=== PATIENT | female | born 1975 | race Caucasian/White ===

== ENCOUNTER 2018-06-25 14:09 | Emergency (ER) | payer BC, SELFPAY ==
[2018-06-25 14:33] VITALS: BP 145/89; PULSE 79; RESP 18; TEMP 37.1; O2SAT 96; BMI 21.0
--- NOTE | 2018-06-25 14:43 | DI.RAD.S_ITS ---
PROCEDURE: XR ANKLE RT MIN 3V INDICATIONS: right ankle pain TECHNIQUE: 3 views of the ankle were acquired. COMPARISON: [facility], , XR FOOT RT MIN 3V, 06/25/2018, 14:22. FINDINGS: Bones: Osseous fragment measuring 6 mm seen projecting adjacent to the lateral aspect of the talus and calcaneus however the exact donor site is unclear, possibly the cuboid given the lucent appearance on the comparison foot radiograph. Ankle mortise is normally aligned. No suspicious bony lesions. Soft tissues: No tibiotalar joint effusion. Achilles tendon appears normal. IMPRESSION: Probable fracture fragment projects adjacent to the lateral aspect of the hindfoot/midfoot. Recommend further evaluation with CT. Dictated by: Huey Kearney M.D. on 06/25/2018 at 15:25 Approved by: Huey Kearney M.D. on 06/25/2018 at 15:29
--- NOTE | 2018-06-25 14:44 | DI.RAD.S_ITS ---
PROCEDURE: XR FOOT RT MIN 3V INDICATIONS: right foot pain TECHNIQUE: 3 views of the foot were acquired. COMPARISON: None. FINDINGS: Bones: No fractures or dislocations. No suspicious bony lesions. Mild plantar calcaneal spur. Soft tissues: No tibiotalar joint effusion. Achilles tendon appears normal. IMPRESSION: No fracture identified Small plantar calcaneal spur. Dictated by: Huey Kearney M.D. on 06/25/2018 at 15:20 Approved by: Huey Kearney M.D. on 06/25/2018 at 15:22
--- NOTE | 2018-06-25 16:47 | PC.NURSE ---
Charge nurse defining ED limitations for behaviors of walking into other pts rooms to find this nurse wearing only a bath blanket.
--- NOTE | 2018-06-25 17:21 | ED_ITS ---
HPI - Extremity Injury (Lower) <Archana Goins PA-C - Last Filed: 06/25/18 23:04> General Chief Complaint: Extremity Injury, Lower Stated Complaint: RIGHT ANKLE Time Seen by Provider: 06/25/18 17:21 Source: patient Mode of arrival: other (Crutches) Limitations: no limitations History of Present Illness HPI Narrative: This 42-year-old female comes in due to persistent right foot and ankle pain. She fell on June 05 describing her right foot being splayed outward laterally. She states that she was seen by her PCP office and this was x-rayed, negative for fracture. She continued to have pain and was put in a walking boot, but told not to bear weight she says. She has been on crutches. She states that whenever she tries to put her leg down at all or dangles that, she has more pain, and there is color change in her ankle and foot, which becomes red and kind of dusky around the toes. She states it feels tingly around the lateral toes. This is much better with the foot elevated and resting. She denies any other injury, pain elsewhere in the lower extremity. She denies any possibility of , has vasectomy. Related Data Home Medications Medication Instructions Recorded Confirmed multivitamin 1 tab PO DAILY 06/25/18 06/25/18 triamcinolone acetonide [Nasacort] 1 spray INTRANASAL DIRECTED PRN 06/25/18 06/25/18 Previous Rx's Medication Instructions Recorded meloxicam [Mobic] 15 mg PO DAILY #14 tab 06/25/18 ondansetron [Zofran ODT] 4 mg PO Q6-8H PRN #10 tab 06/25/18 Allergies Allergy/AdvReac Type Severity Reaction Status Date / Time Sulfa (Sulfonamide Allergy Rash Verified 06/25/18 14:40 Antibiotics) acetaminophen [From Vicodin] AdvReac Vomiting Verified 06/25/18 14:41 hydrocodone [From Vicodin] AdvReac Vomiting Verified 06/25/18 14:41 Review of Systems <Archana Goins PA-C - Last Filed: 06/25/18 23:04> Review of Systems All systems reviewed & are unremarkable except as noted in HPI and below Exam <Archana Goins PA-C - Last Filed: 06/25/18 23:04> Narrative Exam Narrative: GENERAL APPEARANCE: Patient sitting comfortably, in no distress. LUNGS: Clear to auscultation bilaterally. HEART: Rate and rhythm regular without murmur, normal S1 and S2, no S3 or S4. EXTREMITIES: No cyanosis or edema with patient lying supine. With the legs dangling, right foot and ankle area become ruborous and dusky. DP pulses are easily palpable in either position. PT pulses are faint bilaterally but present supine. Difficult to palpate or here on Doppler with the feet dangling but are present. Toes are warm and pink with brisk cap refill NEUROLOGIC: Lower extremity sensation grossly intact bilaterally. MUSCULOSKELETAL: Perhaps trace effusion over the lateral foot and ankle. Generalized tenderness around the inferior ankle joint most notable laterally into the proximal foot. Also some tenderness over the distal mid metatarsals. No point tenderness elsewhere. She is able to dorsiflex and plantar flex the toes against resistance. Achilles is intact by palpation. DERMATOLOGIC: Lower extremities there are no skin lesions, no tenting Initial Vital Signs Initial Vital Signs: Vital Signs Temperature 98.7 F 06/25/18 14:33 Pulse Rate 79 06/25/18 14:33 Respiratory Rate 18 06/25/18 14:33 Blood Pressure 145/89 H 06/25/18 14:33 Pulse Oximetry 96 06/25/18 14:33 <Ji Taylor MD - Last Filed: 07/22/18 18:24> Initial Vital Signs Initial Vital Signs: Vital Signs Temperature 98.7 F 06/25/18 14:33 Pulse Rate 79 06/25/18 14:33 Respiratory Rate 18 06/25/18 14:33 Blood Pressure 145/89 H 06/25/18 14:33 Pulse Oximetry 96 06/25/18 14:33 Course <Archana Goins PA-C - Last Filed: 06/25/18 23:04> Additional Information: I spoke with Dr. Vizcaino, collision mechanic for orthopedics to review findings of multiple fractures and probable hematoma. She does appear to have acute vascular compromise on exam today. She is feeling more comfortable with pain medications. She has crutches already at home and has been nonweightbearing. Dr. Vizcaino advised that she can continue this and follow up at her office next week. Patient is agreeable with this plan and agrees to return if any acutely worsening or new symptoms in the interim. Orders Ordered: Discontinued Medications Haloperidol (Haldol) 5 mg IM NOW ONE Stop: 06/25/18 19:45 Sodium Chloride (Normal Saline 0.9%) 1,000 mls @ 1,000 mls/hr IV BOLUS ONE Stop: 06/25/18 19:15 Last Infusion: 06/25/18 21:11 Dose: 0 mls/hr Admin: 06/25/18 18:37 Dose: 1,000 mls/hr Meloxicam (Mobic) 15 mg PO 0800 ONE Stop: 06/26/18 17:47 Meloxicam (Mobic) 15 mg PO NOW ONE Stop: 06/25/18 18:21 Last Admin: 06/25/18 18:37 Dose: 15 mg Ondansetron HCl (Zofran Odt) 4 mg PO NOW ONE Stop: 06/25/18 18:04 Last Admin: 06/25/18 18:14 Dose: 4 mg Tramadol HCl (Ultram) 50 mg PO NOW ONE Stop: 06/25/18 18:04 Last Admin: 06/25/18 18:14 Dose: 50 mg Vital Signs - 8 hr 06/25/18 21:21 06/25/18 22:14 Temperature 98.1 F Pulse Rate 66 70 Respiratory Rate 14 16 Blood Pressure 152/101 H Blood Pressure [Left Arm] 150/97 H Pulse Oximetry 95 98 <Ji Taylor MD - Last Filed: 07/22/18 18:24> Orders Ordered: Discontinued Medications Haloperidol (Haldol) 5 mg IM NOW ONE Stop: 06/25/18 19:45 Sodium Chloride (Normal Saline 0.9%) 1,000 mls @ 1,000 mls/hr IV BOLUS ONE Stop: 06/25/18 19:15 Last Infusion: 06/25/18 21:11 Dose: 0 mls/hr Admin: 06/25/18 18:37 Dose: 1,000 mls/hr Meloxicam (Mobic) 15 mg PO 0800 ONE Stop: 06/26/18 17:47 Meloxicam (Mobic) 15 mg PO NOW ONE Stop: 06/25/18 18:21 Last Admin: 06/25/18 18:37 Dose: 15 mg Ondansetron HCl (Zofran Odt) 4 mg PO NOW ONE Stop: 06/25/18 18:04 Last Admin: 06/25/18 18:14 Dose: 4 mg Tramadol HCl (Ultram) 50 mg PO NOW ONE Stop: 06/25/18 18:04 Last Admin: 06/25/18 18:14 Dose: 50 mg Vital Signs - 8 hr 06/25/18 21:21 06/25/18 22:14 Temperature 98.1 F Pulse Rate 66 70 Respiratory Rate 14 16 Blood Pressure 152/101 H Blood Pressure [Left Arm] 150/97 H Pulse Oximetry 95 98 MDM - Extremity Injury (Lower) <Archana Goins PA-C - Last Filed: 06/25/18 23:04> Lab Data Result diagrams: 06/25/18 18:55 06/25/18 18:55 Lab Results 06/25/18 06/25/18 Range/Units 18:55 18:55 WBC 6.4 (4.5-11.0) X10^3/uL RBC 4.69 (4.0-5.2) X10^6/uL Hgb 13.9 (12.0-16.0) g/dL Hct 39.1 (36-46) % MCV 83.2 (80-100) fL MCH 29.6 (26-34) PG MCHC 35.5 (30-36) % RDW 13.2 (11.6-14.8) % Plt Count 238 (150-400) X10^3/uL Neut % (Auto) 56.9 (50-75) % Lymph % (Auto) 32.3 (25-40) % [place] % (Auto) 7.2 (3-14) % Eos % (Auto) 2.8 (2-4) % Baso % (Auto) 0.8 (0-2) % Neut # (Auto) 3700 (2924-9444) /uL Sodium 135 L (137-145) mmol/L Potassium 4.7 (3.4-5.1) mmol/L Chloride 102 (98-107) mmol/L Carbon Dioxide 26 (22-32) mmol/L BUN 16 (7-17) mg/dL Creatinine 0.60 (0.52-1.04) mg/dL Estimated GFR > 60.0 (>60) mL/min BUN/Creatinine Ratio 26.7 H (6-22) Glucose 81 (70-100) mg/dL Calcium 8.5 (8.4-10.2) mg/dL Imaging Data extremity: Radiologist's impression: View Report History Print [address] [address] [address] Scan Report Signed Patient: KAREN FELIX I MR#: [id number] : 1975 Acct:[id number] Age/Sex: 42 / F Date of Service: 06/25/18 Loc: ED Accession Number: [id number] Procedure: CT angio abd aorta runoff Ordering Provider: Archana Goins P.A-C PROCEDURE: CT ANGIO RUNOFF OF THE RIGHT LOWER EXTREMITY INDICATIONS: Fracture, possible vascular injury. TECHNIQUE: After the administration of intravenous contrast, 2.5 mm sections acquired of the bilateral lower extremities from the distal femurs through the feet. 3- dimensional maximum intensity projection (MIP) coronal and sagittal reformats, and/or 3- dimensional volume rendering reformatting was then performed. For radiation dose reduction , the following was used: automated exposure control. COMPARISON:.[facility], CR, XR ANKLE RT MIN 3V, 06/25/2018, 14:22. [facility], CR, XR FOOT RT MIN 3V, 06/25/2018, 14:22. FINDINGS: There are comminuted fractures of the anterolateral right calcaneus, lateral right navicular bone, and posterior right cuboid bone with lateral right foot soft tissue edema. There is a 4.4 cm hematoma lateral to the right foot fractures without acute contrast extravasation. There is no evidence of lower extremity vascular injury to the level of the ankle. The vascular structures of the right foot are not well opacified by contrast on this exam, but a blood vessel it is partially opacified by contrast overlies the hematoma laterally. IMPRESSION: #1. Comminuted fractures of the anterolateral right calcaneus, lateral right navicular bone, and posterior right cuboid bone with overlying lateral right foot soft tissue edema. There is a 4.4 cm lateral right foot hematoma, without active contrast extravasation. #2. Structures of the foot are not well opacified by contrast due to the diminutive size of the vessels. However, there is a partially opacified blood vessel that overlies the above described hematoma laterally that may be affected by mass effect from the hematoma. Dictated by: Jamie Fernández M.D. on 06/25/2018 at 20:51 Approved by: Jamie Fernández M.D. on 06/25/2018 at 21:07 View Report History Print [address] [address] XRay Report Signed Patient: KAREN FELIX I MR#: [id number] : 1975 Acct:[id number] Age/Sex: 42 / F Date of Service: 06/25/18 Loc: ED Accession Number: [id number] Procedure: XR foot RT min 3V Ordering Provider: Archana Goins P.A-C PROCEDURE: XR FOOT RT MIN 3V INDICATIONS: right foot pain TECHNIQUE: 3 views of the foot were acquired. COMPARISON: None. FINDINGS: Bones: No fractures or dislocations. No suspicious bony lesions. Mild plantar calcaneal spur. Soft tissues: No tibiotalar joint effusion. Achilles tendon appears normal. IMPRESSION: No fracture identified Small plantar calcaneal spur. Dictated by: Huey Kearney M.D. on 06/25/2018 at 15:20 Approved by: Huey Kearney M.D. on 06/25/2018 at 15:[address] [address] XRay Report Signed Patient: KAREN FELIX I MR#: [id number] : 1975 Acct:[id number] Age/Sex: 42 / F Date of Service: 06/25/18 Loc: ED Accession Number: [id number] Procedure: XR ankle RT min 3V Ordering Provider: Archana Goins P.A-C PROCEDURE: XR ANKLE RT MIN 3V INDICATIONS: right ankle pain TECHNIQUE: 3 views of the ankle were acquired. COMPARISON: [facility], , XR FOOT RT MIN 3V, 06/25/2018, 14:22. FINDINGS: Bones: Osseous fragment measuring 6 mm seen projecting adjacent to the lateral aspect of the talus and calcaneus however the exact donor site is unclear, possibly the cuboid given the lucent appearance on the comparison foot radiograph. Ankle mortise is normally aligned. No suspicious bony lesions. Soft tissues: No tibiotalar joint effusion. Achilles tendon appears normal. IMPRESSION: Probable fracture fragment projects adjacent to the lateral aspect of the hindfoot/midfoot. Recommend further evaluation with CT. Dictated by: Huey Kearney M.D. on 06/25/2018 at 15:25 Approved by: Huey Kearney M.D. on 06/25/2018 at 15:[address] [address] XRay Report Signed Patient: KAREN FELIX I MR#: [id number] : 1975 Acct:[id number] Age/Sex: 42 / F Date of Service: 06/25/18 Loc: ED Accession Number: [id number] Procedure: XR ankle RT min 3V Ordering Provider: Archana Goins P.A-C PROCEDURE: XR ANKLE RT MIN 3V INDICATIONS: right ankle pain TECHNIQUE: 3 views of the ankle were acquired. COMPARISON: [facility], , XR FOOT RT MIN 3V, 06/25/2018, 14:22. FINDINGS: Bones: Osseous fragment measuring 6 mm seen projecting adjacent to the lateral aspect of the talus and calcaneus however the exact donor site is unclear, possibly the cuboid given the lucent appearance on the comparison foot radiograph. Ankle mortise is normally aligned. No suspicious bony lesions. Soft tissues: No tibiotalar joint effusion. Achilles tendon appears normal. IMPRESSION: Probable fracture fragment projects adjacent to the lateral aspect of the hindfoot/midfoot. Recommend further evaluation with CT. Dictated by: Huey Kearney M.D. on 06/25/2018 at 15:25 Approved by: Huey Kearney M.D. on 06/25/2018 at 15:29 <Ji Taylor MD - Last Filed: 07/22/18 18:24> Lab Data Lab Results 06/25/18 06/25/18 Range/Units 18:55 18:55 WBC 6.4 (4.5-11.0) X10^3/uL RBC 4.69 (4.0-5.2) X10^6/uL Hgb 13.9 (12.0-16.0) g/dL Hct 39.1 (36-46) % MCV 83.2 (80-100) fL MCH 29.6 (26-34) PG MCHC 35.5 (30-36) % RDW 13.2 (11.6-14.8) % Plt Count 238 (150-400) X10^3/uL Neut % (Auto) 56.9 (50-75) % Lymph % (Auto) 32.3 (25-40) % [place] % (Auto) 7.2 (3-14) % Eos % (Auto) 2.8 (2-4) % Baso % (Auto) 0.8 (0-2) % Neut # (Auto) 3700 (5631-3068) /uL Sodium 135 L (137-145) mmol/L Potassium 4.7 (3.4-5.1) mmol/L Chloride 102 (98-107) mmol/L Carbon Dioxide 26 (22-32) mmol/L BUN 16 (7-17) mg/dL Creatinine 0.60 (0.52-1.04) mg/dL Estimated GFR > 60.0 (>60) mL/min BUN/Creatinine Ratio 26.7 H (6-22) Glucose 81 (70-100) mg/dL Calcium 8.5 (8.4-10.2) mg/dL Discharge Plan Departure Patient Disposition: Home Clinical Impression: Foot fracture, right Discharge Date/Time: 06/25/18 22:14 Interventions: ED Discharge Assessment Last Done: 06/25/18 22:14 Instructions: DI for Foot Fracture Activity Restrictions/Additional Instructions: You should return as we talked about if you have any acutely worsening symptoms such as more pain, skin changes, numbness, fever or swelling. Otherwise, you should be completely nonweightbearing (use your crutches). I have sent in a prescription for the anti-inflammatory meloxicam that we gave you here today. Please try taking this once daily with food since you seemed to do okay with it in terms of stomach upset. You can add the tramadol that you have at home as needed for pain. I have prescribed the antinausea medicine that you had here today for you to take with this as needed. Do not drive while taking the pain medication until you determine whether it causes you any drowsiness. Thursday morning, please call [facility]. Let them know you have multiple fractures in your heel area and Dr. Rothman who was collision mechanic for the emergency room wanted you to be seen so that they can schedule an appointment for you. Prescriptions: New ondansetron [Zofran ODT] 4 mg tablet,disintegrating 4 mg PO Q6-8H PRN (Reason: nausea and vomiting) Qty: 10 RF: 0 meloxicam [Mobic] 15 mg tablet 15 mg PO DAILY Qty: 14 RF: 0 No Action multivitamin Tablet 1 tab PO DAILY RF: 0 triamcinolone acetonide [Nasacort] 55 mcg Aerosol,[place] 1 spray Intranasal DIRECTED PRN (Reason: seasonal allergies) RF: 0 Referrals: Sena Vizcaino MD [Physician] - Reagan Collins MD [Non-Staff] - <Ji Taylor MD - Last Filed: 07/22/18 18:24> Cosign ED Attending Cosignature Attestation: I was present in the ER at the time of this patient's care. I was available for verbal consultation, or to see the patient directly if needed. I agree with the assessment, and care plan.
[2018-06-25] MEDS: ONDANSETRON 4 MG ODT PO (18:14)
[2018-06-25] MEDS: TRAMADOL 50 MG TABLET PO (18:14)
--- NOTE | 2018-06-25 18:16 | DI.CT.S_ITS ---
PROCEDURE: CT ANGIO RUNOFF OF THE RIGHT LOWER EXTREMITY INDICATIONS: Fracture, possible vascular injury. TECHNIQUE: After the administration of intravenous contrast, 2.5 mm sections acquired of the bilateral lower extremities from the distal femurs through the feet. 3-dimensional maximum intensity projection (MIP) coronal and sagittal reformats, and/or 3-dimensional volume rendering reformatting was then performed. For radiation dose reduction, the following was used: automated exposure control. COMPARISON:.[facility], CR, XR ANKLE RT MIN 3V, 06/25/2018, 14:22. [facility], CR, XR FOOT RT MIN 3V, 06/25/2018, 14:22. FINDINGS: There are comminuted fractures of the anterolateral right calcaneus, lateral right navicular bone, and posterior right cuboid bone with lateral right foot soft tissue edema. There is a 4.4 cm hematoma lateral to the right foot fractures without acute contrast extravasation. There is no evidence of lower extremity vascular injury to the level of the ankle. The vascular structures of the right foot are not well opacified by contrast on this exam, but a blood vessel it is partially opacified by contrast overlies the hematoma laterally. IMPRESSION: #1. Comminuted fractures of the anterolateral right calcaneus, lateral right navicular bone, and posterior right cuboid bone with overlying lateral right foot soft tissue edema. There is a 4.4 cm lateral right foot hematoma, without active contrast extravasation. #2. Structures of the foot are not well opacified by contrast due to the diminutive size of the vessels. However, there is a partially opacified blood vessel that overlies the above described hematoma laterally that may be affected by mass effect from the hematoma. Dictated by: Jamie Fernández M.D. on 06/25/2018 at 20:51 Approved by: Jamie Fernández M.D. on 06/25/2018 at 21:07
[2018-06-25] MEDS: SODIUM CHLORIDE 0.9% 1,000 ML 1000 ML IV (18:37)
[2018-06-25] MEDS: MELOXICAM 7.5 MG TABLET 15 MG PO (18:37)
--- NOTE | 2018-06-25 18:58 | PC.NURSE ---
Elevated leg per provider request. Stable after CTA
[2018-06-25 19:01] LABS: Add Manual Diff / Slide Review NO; Basophils Percent Auto 0.8 % (0-2); Eosinophils Percent Auto 2.8 % (2-4); Hematocrit 39.1 % (36-46); Hemoglobin 13.9 g/dL (12.0-16.0); Lymphocytes Percent Auto 32.3 % (25-40); Mean Corpuscular HGB Conc 35.5 % (30-36); Mean Corpuscular Hemoglobin 29.6 PG (26-34); Mean Corpuscular Volume 83.2 fL (80-100); Monocytes Percent Auto 7.2 % (3-14); Neutrophils Absolute Auto 3700 /uL (3000-5900); Neutrophils Percent Auto 56.9 % (50-75); Platelet Count 238 X10^3/uL (150-400); Red Blood Cell Count 4.69 X10^6/uL (4.0-5.2); Red Cell Distribution Width 13.2 % (11.6-14.8); White Blood Cell Count 6.4 X10^3/uL (4.5-11.0)
[2018-06-25 19:12] LABS: BUN Creatinine Ratio 26.7 (6-22); Blood Urea Nitrogen 16 mg/dL (7-17); Calcium 8.5 mg/dL (8.4-10.2); Carbon Dioxide 26 mmol/L (22-32); Chloride 102 mmol/L (98-107); Estimated Glomerular Filt Rate > 60.0 mL/min (>60); Glucose 81 mg/dL (70-100); Potassium 4.7 mmol/L (3.4-5.1); Sodium 135 mmol/L (137-145)
[2018-06-25 19:13] LABS: HEMOLYSIS 138 (0-50)
[2018-06-25 21:21] VITALS: BP 150/97; PULSE 66; RESP 14; O2SAT 95
[2018-06-25 22:14] VITALS: BP 152/101; PULSE 70; RESP 16; TEMP 36.7; O2SAT 98
== END 2018-06-25 22:14 | disposition home or self-care (01) ==
PROVIDERS: Emergency Provider Internal Medicine
DX: S92.901A Unspecified fracture of right foot, initial encounter for closed fracture (principal); W19.XXXA Unspecified fall, initial encounter
CPT/HCPCS: 73610; 73630; 73706; 75635; 80048; 85025; 96360; 96361; 99283; 99284

== ENCOUNTER 2021-09-24 19:25 | Emergency (ER) | payer BC, SELFPAY ==
[2021-09-24 19:39] VITALS: BP 157/92; PULSE 88; RESP 20; TEMP 36.9; O2SAT 98
--- NOTE | 2021-09-24 21:07 | ED.EAR ---
HPI - Ear Problem General Chief complaint: Ear Stated complaint: rt ear pain Time Seen by Provider: 09/24/21 21:06 Source: patient Mode of arrival: Ambulatory History of Present Illness HPI Narrative: 46-year-old female nonsmoker with noncontributory medical history other and a chief complaint of right ear pain over the past 24 hours or so. She denies any injury nor fever or chills. She states that she has had no drainage or leakage from the ear. She denies other symptoms such as runny nose, sneezing, cough, chest pain or shortness of breath. She has had no nausea, vomiting or diarrhea. She denies any trauma or injury. She denies any recent flights or scuba diving. She denies any change in hearing. She denies any dizziness, weakness or lightheadedness Related Data Home Medications Medication Instructions Recorded Confirmed multivitamin 1 tab PO DAILY 06/25/18 06/25/18 triamcinolone acetonide 55 mcg 1 spray INTRANASAL DIRECTED PRN 06/25/18 06/25/18 nasal spray aerosol (Nasacort) Previous Rx's Medication Instructions Recorded meloxicam 15 mg tablet (Mobic) 15 mg PO DAILY #14 tab 06/25/18 ondansetron 4 mg disintegrating 4 mg PO Q6-8H PRN #10 tab 06/25/18 tablet (Zofran ODT) Allergies Allergy/AdvReac Type Severity Reaction Status Date / Time Sulfa (Sulfonamide Allergy Rash Verified 06/25/18 14:40 Antibiotics) acetaminophen [From Vicodin] AdvReac Vomiting Verified 06/25/18 14:41 hydrocodone [From Vicodin] AdvReac Vomiting Verified 06/25/18 14:41 Review of Systems Review of Systems Narrative: GENERAL: Denies chills, fatigue, malaise, fever, sweats. HEENT: See HPI RESPIRATORY: Denies dyspnea, cough, wheezing, hemoptysis, sputum. CARDIOVASCULAR: Denies chest pain, palpitations, orthopnea, edema, GASTROINTESTINAL: Denies nausea, vomiting, abdominal pain, diarrhea, constipation, melena. : Denies dysuria, frequency, incontinence, hematuria, urinary retention. MUSCULOSKELETAL: denies weakness, joint pain, or bony pain SKIN: Denies rash, skin lesions, or other NEUROLOGIC: Denies weakness, headache, numbness, change in speech, confusion, seizures, incoordination. PSYCHIATRIC: No concerning psychosocial issues. 12 point review of systems is negative except for those stated above Patient History Medical History Atypical migraine Seasonal allergies Surgical History History of Hx of appendectomy Social History Smoking Status: Never smoker Smoking Status: Never smoker alcohol intake frequency: 0-2 drinks per day Substance Use Type: does not use Exam Narrative Exam Narrative: GEN: AOx3 and in mild distress EYES: Pupils are equal, round, and reactive to light and accommodation. Extraoccular muscles are intact bilaterally. There is no subconjunctival hemorrhage or exudate. ENT: Right external auditory canal swollen and erythematous without drainage. Tympanic membrane is clear, flat with central scarring, no erythema, bulging. No tympanic perforation. No surrounding erythema, no pain on palpation mastoid process CHEST: Lungs are clear to auscultation bilaterally and free of wheezes, rales, or rhonchi. Heart rate is regular rhythm, there are no murmurs, clicks, rubs, or gallops. There is no chest wall tenderness. ABD: Abdomen is soft and nontender. There is no guarding or rebound. Bowel sounds are normal in all 4 quadrants. There is no mass or organomegaly. EXT: Full painless ROM of all extremities with no loss of sensation or strength. SKIN: Warm, pink, and dry. No erythema or rash Initial Vital Signs Initial Vital Signs: Vital Signs Temperature 98.4 F 09/24/21 19:39 Pulse Rate 88 09/24/21 19:39 Respiratory Rate 20 09/24/21 19:39 Blood Pressure 157/92 H 09/24/21 19:39 Pulse Oximetry 98 09/24/21 19:39 Course Orders Ordered: Discontinued Medications Ofloxacin (Ofloxacin 0.3% Ophth 5 Ml) 5 drops EAR-RIGHT NOW ONE Stop: 09/24/21 21:22 Last Admin: 09/24/21 21:24 Dose: 5 drop Documented by: LAUREANO Vital Signs Vital signs: Vital Signs - 8 hr 09/24/21 19:39 Temperature 98.4 F Pulse Rate 88 Respiratory Rate 20 Blood Pressure 157/92 H Pulse Oximetry 98 Discharge Plan Departure Patient Disposition: Home Clinical Impression: Otitis externa Instructions: How to Instill Ear Drops Activity Restrictions/Additional Instructions: *You have been diagnosed with [right-sided otitis externa] *What to do: *Please continue to take your regular medications as directed. [ ] New medication prescriptions sent to your pharmacy: [ ] [ ] New medication written as a paper prescription [ ] No new medications given *Please follow up with your primary care provider in 2-3 days, call for an appointment. Let them know you were seen in the Emergency Department and that we ask that you be seen in follow up. We will electronically transmit a record of today's note if your PCP is in our system *If you do not have a primary care provider please contact the [facility] Resource line at [phone]. They will ask some questions about your medical history and help get you set up with a doctor in the community. *Return to Emergency Department if you should have any new, worsening or concerning symptoms, such as [fever greater than 101 F, shaking chills, worsening pain, persistent vomiting or other bothersome symptoms] Prescriptions: No Action multivitamin Tablet 1 tab PO DAILY RF: 0 triamcinolone acetonide [Nasacort] 55 mcg Aerosol,[place] 1 spray Intranasal DIRECTED PRN (Reason: seasonal allergies) RF: 0 ondansetron [Zofran ODT] 4 mg tablet,disintegrating 4 mg PO Q6-8H PRN (Reason: nausea and vomiting) Qty: 10 RF: 0 meloxicam [Mobic] 15 mg tablet 15 mg PO DAILY Qty: 14 RF: 0
[2021-09-24] MEDS: OFLOXACIN 0.3% OPHTH 5 ML 5 DROPS EAR-RIGHT (21:24)
== END 2021-09-24 21:30 | disposition home or self-care (01) ==
PROVIDERS: Emergency Provider Emergency Medicine
DX: H60.91 Unspecified otitis externa, right ear (principal)
CPT/HCPCS: 99282

== ENCOUNTER → 2022-06-06 09:20 | Outpatient (CLI) | payer BC, SELFPAY ==
[2022-06-06 10:26] LABS: Add Manual Diff / Slide Review NO; Basophils Absolute Auto 0 /uL (0-100); Basophils Percent Auto 0.9 % (0-2); Eosinophils Absolute Auto 100 /uL (0-450); Eosinophils Percent Auto 3.6 % (2-4); Hematocrit 42.4 % (36-46); Hemoglobin 14.7 g/dL (12.0-16.0); Lymphocytes Absolute Auto 1600 /uL (1100-4500); Lymphocytes Percent Auto 39.8 % (25-40); Mean Corpuscular HGB Conc 34.8 % (30-36); Mean Corpuscular Hemoglobin 29.1 PG (26-34); Mean Corpuscular Volume 83.7 fL (80-100); Monocytes Absolute Auto 300 /uL (0-900); Monocytes Percent Auto 7.9 % (3-14); Neutrophils Absolute Auto 2000 /uL (1500-7000); Neutrophils Percent Auto 47.8 % (50-75); Platelet Count 234 X10^3/uL (150-400); Red Blood Cell Count 5.06 X10^6/uL (4.0-5.2); Red Cell Distribution Width 12.8 % (11.6-14.8); White Blood Cell Count 4.1 X10^3/uL (4.5-11.0)
[2022-06-06 10:27] LABS: Alanine Aminotransferase 14 IU/L (<35); Albumin 4.2 g/dL (3.5-5.0); Albumin Globulin Ratio 1.6 (1.0-2.8); Alkaline Phosphatase 38 U/L (38-126); Aspartate Aminotransferase 25 IU/L (14-36); BUN Creatinine Ratio 19.7 (6-22); Bilirubin Total 0.7 mg/dL (0.2-1.3); Blood Urea Nitrogen 15 mg/dL (7-17); Calcium 8.6 mg/dL (8.4-10.2); Carbon Dioxide 29 mmol/L (22-32); Chloride 104 mmol/L (98-107); Cholesterol 216 mg/dL (140-199); Estimated Glomerular Filt Rate > 60 mL/min (>60); Globulin 2.6 g/dL (1.7-4.1); Glucose 89 mg/dL (70-100); HDL Cholesterol 70 mg/dL (40-60); HEMOLYSIS < 15 (0-50); LDL Cholesterol Calculated 132 mg/dL (<100); Potassium 3.5 mmol/L (3.4-5.1); Sodium 139 mmol/L (137-145); Total Protein 6.8 g/dL (6.3-8.2); Triglycerides 72 mg/dL (35-150)
[2022-06-06 10:54] LABS: TSH w/ Reflex to FT4 2.51 uIU/mL (0.47-4.68)
== END ==
PROVIDERS: PCP Family Medicine; Referring Provider Family Medicine; Visit Provider Family Medicine
DX: G43.009 Migraine without aura, not intractable, without status migrainosus (principal); I83.811 Varicose veins of right lower extremity with pain; J30.2 Other seasonal allergic rhinitis
CPT/HCPCS: 36415; 80053; 80061; 84443; 85025

== ENCOUNTER → 2023-09-03 10:51 | Outpatient (CLI) | payer BC, SELFPAY ==
[2023-09-03 12:04] LABS: Add Manual Diff / Slide Review NO; Basophils Absolute Auto 0 /uL (0-100); Basophils Percent Auto 0.8 % (0-2); Eosinophils Absolute Auto 0 /uL (0-450); Eosinophils Percent Auto 0.6 % (2-4); Hematocrit 40.7 % (36-46); Hemoglobin 14.2 g/dL (12.0-16.0); Lymphocytes Absolute Auto 1400 /uL (1100-4500); Mean Corpuscular HGB Conc 34.9 % (30-36); Mean Corpuscular Hemoglobin 29.9 PG (26-34); Mean Corpuscular Volume 85.7 fL (80-100); Monocytes Absolute Auto 300 /uL (0-900); Monocytes Percent Auto 6.6 % (3-14); Neutrophils Absolute Auto 2700 /uL (1500-7000); Platelet Count 213 X10^3/uL (150-400); Red Blood Cell Count 4.75 X10^6/uL (4.0-5.2); Red Cell Distribution Width 12.8 % (11.6-14.8); White Blood Cell Count 4.4 X10^3/uL (4.5-11.0)
== END ==
PROVIDERS: PCP Family Medicine; Referring Provider Physician Assistant; Visit Provider Physician Assistant
DX: R53.83 Other fatigue (principal)
CPT/HCPCS: 36415; 85025

== ENCOUNTER → 2023-09-07 16:49 | Outpatient (CLI) | payer BC, SELFPAY ==
--- NOTE | 2023-09-07 | DI.MG.S_ITS ---
BILATERAL DIGITAL SCREENING MAMMOGRAM 3D/2D WITH CAD: 09/07/2023 CLINICAL: Baseline exam. Routine screening. Family history of breast cancer. No prior exams were available for comparison. Both breasts are extremely dense, which lowers the sensitivity of mammography (category d />75% glandular tissue). Current study was also evaluated with a Computer Aided Detection (CAD) system. No significant masses, calcifications, or other findings are seen in either breast. IMPRESSION: NEGATIVE There is no mammographic evidence of malignancy. A 1 year screening mammogram is recommended. Based on the Tyrer Cuzick model (a risk assessment model) the patient's lifetime risk is 14.8% and her 10 year risk is 3.0%. According to the ACR, ACS, and NCCN guidelines, an annual breast MRI exam along with mammogram is recommended if the patient's lifetime risk is 20% or greater. This exam was interpreted at Station ID: [id number]. NOTE: For mammograms, a report in lay terms will be sent to the patient. Approximately 15% of breast malignancies will not be visualized mammographically. In the management of a palpable breast mass, a negative mammogram must not discourage biopsy of a clinically suspicious lesion. Electronically Signed By: Britton mares/aziza:09/08/2023 11:59:56 letter sent: Normal Exam ACR BI-RADS Category 1: Negative 3341F
== END ==
PROVIDERS: PCP Family Medicine; Referring Provider Specialist; Visit Provider Specialist
DX: Z12.31 Encounter for screening mammogram for malignant neoplasm of breast (principal); Z80.3 Family history of malignant neoplasm of breast
CPT/HCPCS: 77063; 77067

== ENCOUNTER 2024-02-17 17:32 | Emergency (ER) | payer BC, SELFPAY ==
[2024-02-17] VITALS (9 sets, daily range): BP systolic 140–183; BP diastolic 83–103; PULSE 57–76; RESP 16–18; TEMP 36.7; O2SAT 95–100; BMI 21.0
--- NOTE | 2024-02-17 17:59 | DI.CT.S_ITS ---
PROCEDURE: CT HEAD/BRAIN WO CON INDICATIONS: hit in forehead with metal pole 3 days ago, dizzy, LH'd TECHNIQUE: Noncontrast 4.5 mm thick angled axial sections acquired from the foramen magnum to the vertex, with coronal and sagittal reformats. For radiation dose reduction, the following was used: automated exposure control, adjustment of mA and/or kV according to patient size. COMPARISON: None. FINDINGS: Image quality: Diagnostic. CSF spaces: Basal cisterns are patent. No extra-axial fluid collections. Ventricles are normal in size and shape. Brain: No midline shift. No intracranial masses or hemorrhage. Pastor-white matter interface is normal. Skull and face: Calvarium and visualized facial bones are intact, without suspicious lesions. Sinuses: Visualized sinuses and mastoids are clear. IMPRESSION: No acute intracranial pathology. No acute skull fracture. Dictated by: Geovani Ospina M.D. on 02/17/2024 at 18:19 Approved by: Geovani Ospina M.D. on 02/17/2024 at 18:19
--- NOTE | 2024-02-17 21:16 | ED.HEATRA ---
HPI - Head Injury General Chief complaint: Head Injury Stated complaint: concussion on fri, still having issues Time Seen by Provider: 02/17/24 20:44 History of Present Illness HPI Narrative: 48-year-old female with no significant past medical history presents for headache, photophobia, lightheadedness for 5 days. Over the weekend the patient was getting baby goats from their pen to bottle feed, she states that while she was bent over an adult goat struck the gate and it hit her in the head. She had swelling in her forehead but did not lose consciousness in his not on blood thinners. She was evaluated by a friend who is a nurse, but did not seek ER evaluation at that time. Patient states that since the injury she was had persistent symptoms and is concerned that her head injury may be worse than feared. She works as a school bus aide, and while it was currently spring break she does have to use screens to do school lesson preparation. Related Data Home Medications Medication Instructions Recorded Confirmed multivitamin 1 tab PO DAILY 06/25/18 10/26/23 triamcinolone acetonide 55 mcg 1 spray intranasal DIRECTED PRN 06/25/18 10/26/23 nasal spray aerosol (Nasacort) seasonal allergies vitamin D PO 09/03/23 10/26/23 Previous Rx's Medication Instructions Recorded venlafaxine 75 mg capsule,extended 75 mg PO BEDTIME #60 caps 10/26/23 release 24 hr (Effexor XR) Allergies Allergy/AdvReac Type Severity Reaction Status Date / Time Latex, Natural Rubber Allergy Verified 10/26/23 16:42 Sulfa (Sulfonamide Allergy Rash Verified 10/26/23 16:42 Antibiotics) acetaminophen [From Vicodin] AdvReac Vomiting Verified 10/26/23 16:42 hydrocodone [From Vicodin] AdvReac Vomiting Verified 10/26/23 16:42 Review of Systems Review of Systems Narrative: Negative except as noted above Patient History Medical History Fractures (~2017) Tinnitus (~1999) Ovarian cyst (~1994) Seasonal allergies Atypical migraine (~1994) Surgical History Anesthesia History of Hx of appendectomy (~1992) Family History Father History of heart disease Hypertension Hyperlipidemia Social History Smoking Status: Never smoker Smoking Status: Never smoker alcohol intake frequency: 0-2 drinks per day Substance Use Type: does not use Exam Initial Vital Signs Initial Vital Signs: Vital Signs Temperature 98.1 F 02/17/24 17:51 Pulse Rate 64 02/17/24 17:51 Respiratory Rate 16 02/17/24 17:51 Blood Pressure 183/99 H 02/17/24 17:51 Pulse Oximetry 100 02/17/24 17:51 Oxygen Delivery Method Room Air 02/17/24 17:51 Const: Awake, alert, nontoxic appearing Eyes: PERRLA, EOMI Ears: No hemotympanum, no salas sign Skin: Warm, Dry, intact, no rashes Neuro: AO x3, CN II-XII grossly intact, moves all extremities Course Orders Ordered: Discontinued Medications Diphenhydramine HCl (Diphenhydramine 50 Mg/Ml Vial) 50 mg IV NOW ONE Stop: 02/17/24 21:16 Last Admin: 02/17/24 21:26 Dose: 50 mg Documented By: [place] Sodium Chloride (Normal Saline 0.9%) 1,000 mls @ 1,000 mls/hr IV BOLUS ONE Stop: 02/17/24 22:14 Last Infusion: 02/17/24 22:37 Dose: Infused Documented By: Admin: 02/17/24 21:26 Dose: 1,000 mls/hr Documented By: [place] Ketorolac Tromethamine (Ketorolac 30 Mg/Ml Vial) 15 mg IV NOW ONE Stop: 02/17/24 21:16 Last Admin: 02/17/24 21:25 Dose: 15 mg Documented By: SB Metoclopramide HCl (Metoclopramide 10 Mg/2 Ml Inj) 10 mg IV NOW ONE Stop: 02/17/24 21:16 Last Admin: 02/17/24 21:26 Dose: 10 mg Documented By: SB Vital Signs Vital signs: Vital Signs - 8 hr 02/17/24 17:51 02/17/24 20:28 02/17/24 20:29 Temperature 98.1 F Pulse Rate 64 62 Respiratory Rate 16 Blood Pressure 183/99 H Pulse Oximetry 100 95 100 Oxygen Delivery Method Room Air 02/17/24 20:29 02/17/24 20:30 02/17/24 21:00 Temperature Pulse Rate 57 L 57 L Respiratory Rate 18 18 Blood Pressure 165/90 H Pulse Oximetry 100 100 Oxygen Delivery Method MDM - Head Injury Differential Diagnosis Differential diagnosis: Likely concussion without loss of consciousness, closed head injury and subarachnoid hematoma Imaging Data CT scan - head: Radiologist's Impression: PROCEDURE: CT HEAD/BRAIN WO CON INDICATIONS: hit in forehead with metal pole 3 days ago, dizzy, LH'd TECHNIQUE: Noncontrast 4.5 mm thick angled axial sections acquired from the foramen magnum to the vertex, with coronal and sagittal reformats. For radiation dose reduction, the following was used: automated exposure control, adjustment of mA and/or kV according to patient size. COMPARISON: None. FINDINGS: Image quality: Diagnostic. CSF spaces: Basal cisterns are patent. No extra-axial fluid collections. Ventricles are normal in size and shape. Brain: No midline shift. No intracranial masses or hemorrhage. Pastor-white matter interface is normal. Skull and face: Calvarium and visualized facial bones are intact, without suspicious lesions. Sinuses: Visualized sinuses and mastoids are clear. IMPRESSION: No acute intracranial pathology. No acute skull fracture. Dictated by: Geovani Ospina M.D. on 02/17/2024 at 18:19 Approved by: Geovani Ospina M.D. on 02/17/2024 at 18:19 [facility] Narrative Medical decision making narrative: Persistent headache and photophobia after head injury. Patient neurologically intact but does appear to be uncomfortable when light is shined in her eyes for pupil assessment. Due to the persistence of her symptoms a CT scan was ordered. Which did not show any acute abnormalities. Concussion recovery likely delayed due to screen time use for her lesson planning. Patient given a migraine cocktail with improvement in headache, she was advised to decrease screen time, avoid bright lights and loud noises, avoid alcohol use, and to get as much rest as possible to help her recovery process. Note for work provided. PCP follow up advised Discharge Plan Departure Patient Disposition: Home Clinical Impression: Concussion without loss of consciousness Instructions: Concussion Activity Restrictions/Additional Instructions: You can take Tylenol and ibuprofen as needed for headache. Avoid bright lights, loud noises, excessive screen time. I do recommend taking the rest of week off of work to help your brain rest and recover. Prescriptions: No Action vitamin D PO Patient Comments: Currently taking 50,000iu, will decrease after 14 days. Patient unsure of dose venlafaxine [Effexor XR] 75 mg capsule,extended release 24hr 75 mg PO BEDTIME Qty: 60 1RF multivitamin Tablet 1 tab PO DAILY triamcinolone acetonide [Nasacort] 55 mcg Aerosol,[place] 1 spray Intranasal DIRECTED PRN (Reason: seasonal allergies) Referrals: Abad Price MD [Primary Care Provider] - Stand Alone Forms: Patient Portal/API, Work Release Note
[2024-02-17] MEDS: KETOROLAC 30 MG/ML VIAL 15 MG IV (21:25)
[2024-02-17] MEDS: METOCLOPRAMIDE 10 MG/2 ML INJ IV (21:26)
[2024-02-17] MEDS: diphenhydrAMINE 50 MG/ML VIAL IV (21:26)
[2024-02-17] MEDS: SODIUM CHLORIDE 0.9% 1,000 ML 1000 ML IV (21:26)
--- NOTE | 2024-02-17 22:23 | PC.NURSE ---
Pt ambulated to bathroom well with minimal assistance from . Pt back in bad to finish last of fluids.
== END 2024-02-17 22:40 | disposition home or self-care (01) ==
PROVIDERS: Emergency Provider Emergency Medicine; PCP Family Medicine
DX: S06.0X0A Concussion without loss of consciousness, initial encounter (principal); W22.8XXA Striking against or struck by other objects, initial encounter
CPT/HCPCS: 70450; 96374; 96375; 99283; J1200; J1885; J2765

== ENCOUNTER → 2024-02-26 19:02 | Outpatient (CLI) | payer BC, SELFPAY ==
--- NOTE | 2024-02-26 19:04 | DI.MRI.S_ITS ---
PROCEDURE: MR STROKE Pre- and post-contrast brain MRI, non-contrast brain MR angiogram, pre- and postcontrast neck MR angiogram INDICATIONS: pulsatile tinnitus on right and intractable headache TECHNIQUE: Brain: Noncontrast axial T1 spin echo, axial T2 fast spin echo, sagittal and axial FLAIR, coronal T2 fast spin echo, axial gradient echo, axial diffusion and ADC through the brain. After the administration of contrast, axial 3D VIBE of the cranial vasculature and brain. Brain MRA: Non-contrast 3-D time of flight MR angiogram, with multiple stsnoit-ismkradsb-zmxneijrjz (MIP) reformats performed. Neck MRA: Axial and sagittal TruFISP through the neck. Coronal dynamic MR angiogram during administration of contrast in the arterial and venous phases, with 3-dimenstional jzotmqd-lccpnfoww-qagurttefs (MIP) reformats constructed from subtraction images. COMPARISON: [facility], CT, CT HEAD/BRAIN WO CON, 02/17/2024, 18:03. FINDINGS: Image quality: Excellent. BRAIN: CSF spaces: Ventricles are normal in size and shape. Basal cisterns are patent. No extra-axial fluid collections. Brain: No intracranial bleeds or mass effects. Pastor-white matter interface is normal. Diffusion weighted images show no acute infarct. Brainstem appears normal. Normal intravascular flow voids are present. There is a slightly prominent cerebral vein in the left frontal lobe, likely a small developmental venous anomaly. Skull and face: Calvarial marrow signal is normal. Orbits appear normal. Sinuses: There is a mucous retention cyst in the left maxillary sinus. The mastoids are clear. BRAIN MR ANGIOGRAM: Anterior circulation: Intracranial internal carotid arteries are normal in size and enhancement. The flow within the paired anterior cerebral arteries is normal and symmetric. The flow within the middle cerebral arteries is normal and symmetric. The anterior communicating artery is seen. No stenoses, occlusions, or aneurysms. Posterior circulation: The visualized portions of the vertebral arteries demonstrate normal caliber, and join to form a normal appearing basilar artery. The flow within the posterior cerebral arteries is normal and symmetric. No stenoses, occlusions, or aneurysms. NECK MR ANGIOGRAM: Carotids: Great vessels demonstrate a conventional anatomy as they arise from the aortic arch. The origins of the common carotid arteries appear patent. The calibers and courses of both common carotid arteries are normal. The bifurcation regions appear normal bilaterally. The internal carotid arteries demonstrate normal course and caliber. Posterior circulation: The origins of the vertebral arteries appear patent. More superior portions of both vertebral arteries demonstrate normal course and caliber, and join to form a normal appearing basilar artery. Miscellaneous: Subclavian arteries appear patent. Pre-contrast images through the neck show no soft tissue abnormalities. IMPRESSION: BRAIN MRI: 1. No acute intracranial abnormalities. 2. Suspect a small developmental venous anomaly in the left frontal lobe. 3. A mucous retention cyst in the right maxillary sinus. BRAIN MR ANGIOGRAM: Normal cerebral angiogram. NECK MR ANGIOGRAM: Normal neck angiogram. Dictated by: Morenita Dickey M.D. on 02/26/2024 at 21:30 Approved by: Morenita Dickey M.D. on 02/27/2024 at 2:31
== END ==
LOC: MRI 19:02
PROVIDERS: PCP Family Medicine; Referring Provider Family Medicine; Visit Provider Family Medicine
DX: G43.009 Migraine without aura, not intractable, without status migrainosus (principal); R51.9 Headache, unspecified; H93.A1 Pulsatile tinnitus, right ear; J34.1 Cyst and mucocele of nose and nasal sinus
CPT/HCPCS: 70544; 70549; 70553; A9579

== ENCOUNTER → 2024-09-22 16:41 | Outpatient (CLI) | payer BC, SELFPAY ==
--- NOTE | 2024-09-22 16:45 | DI.MG.S_ITS ---
BILATERAL DIGITAL SCREENING MAMMOGRAM 3D/2D WITH CAD: 09/22/2024 CLINICAL: Routine screening. Family history of breast cancer. Comparison is made to exam dated: 09/07/2023 mammogram - [facility]. The breasts are extremely dense, which lowers the sensitivity of mammography (category d />75% glandular tissue). Current study was also evaluated with a Computer Aided Detection (CAD) system. No significant masses, calcifications, or other findings are seen in either breast. There has been no significant interval change. IMPRESSION: NEGATIVE There is no mammographic evidence of malignancy. A 1 year screening mammogram is recommended. Based on Tyrer-Cuzick model (a risk assessment model), the patient's lifetime risk is 27.3% and her 10 year risk is 6.3%. If a patient has an elevated risk, a more comprehensive evaluation should be considered and/or a referral to a genetic counselor. The [place], [employer], and NCCN Guidelines advise the consideration of Breast MRI as an adjunct to screening mammography in patients whose Lifetime risk to develop breast cancer is 20% or higher. This exam was interpreted at Station ID: [id number]. NOTE: For mammograms, a report in lay terms will be sent to the patient. Approximately 15% of breast malignancies will not be visualized mammographically. In the management of a palpable breast mass, a negative mammogram must not discourage biopsy of a clinically suspicious lesion. Electronically Signed By: Edmond garcia/aziza:09/23/2024 23:49:18 letter sent: Normal Exam ACR BI-RADS Category 1: Negative
== END ==
PROVIDERS: PCP Family Medicine; Referring Provider Physician Assistant; Visit Provider Physician Assistant
DX: Z12.31 Encounter for screening mammogram for malignant neoplasm of breast (principal); Z80.3 Family history of malignant neoplasm of breast; R92.343 Mammographic extreme density, bilateral breasts
CPT/HCPCS: 77063; 77067

== ENCOUNTER → 2024-09-22 17:24 | Outpatient (CLI) | payer SELFPAY | PROVIDERS: PCP Family Medicine; Referring Provider Family Medicine; Visit Provider Family Medicine | DX: Z13.9 Encounter for screening, unspecified (principal) | CPT/HCPCS: 36415 ==

== ENCOUNTER → 2024-11-18 15:36 | Outpatient (CLI) | payer BC, SELFPAY ==
--- NOTE | 2024-11-18 15:37 | DI.MRI.S_ITS ---
BREAST MRI OF BOTH BREASTS: 11/18/2024 CLINICAL: High risk screening. PROCEDURE: MR BREAST BI WO/W CON INDICATIONS: Very dense breasts TC 27% FH BRCA 2 - sister TECHNIQUE: The patient was placed prone in a dedicated breast imaging coil. Precontrast axial STIR and 3D FLASH without fat saturation sequences were obtained. Both before and after bolus injection of contrast, sequential 1-minute axial 3D FLASH with fat saturation sequences for 3 time points, with subtraction images and maximum intensity projections (MIP's) generated. Delayed sagittal FLASH images with fat saturation were also obtained. Computer-aided detection, including computer algorithm analysis of MRI image data for lesion detection and characterization, pharmacokinetic analysis, with further physician review for interpretation, was performed. COMPARISON: Mammogram 09/23/2024. FINDINGS: Image quality: Diagnostic. There is an extreme amount of fibroglandular tissue. There is moderate and symmetric background parenchymal enhancement. Right breast: There is no suspicious enhancement or lymphadenopathy. Left breast: There is no suspicious enhancement or lymphadenopathy. IMPRESSION: NEGATIVE No MRI evidence of malignancy. Recommend continued routine annual mammogram and MRI screening. Future imaging is recommended as follows: 09/23/2025 screening mammogram. This exam was interpreted at Station ID: [id number]. Electronically Signed By: Deidre Greene M.D., Ph.D. eb/:11/22/2024 09:12:04 ACR BI-RADS Category 1: Negative
== END ==
LOC: MRI 15:36
PROVIDERS: PCP Family Medicine; Referring Provider Physician Assistant; Visit Provider Physician Assistant
DX: R92.30 Dense breasts, unspecified (principal); Z91.89 Other specified personal risk factors, not elsewhere classified; Z12.39 Encounter for other screening for malignant neoplasm of breast; Z84.81 Family history of carrier of genetic disease
CPT/HCPCS: 77049; A9579

== ENCOUNTER → 2024-12-10 10:19 | Outpatient (CLI) | payer BC, SELFPAY ==
[2024-12-10 11:17] LABS: Influenza A - CEPHEID Flu A NEGATIVE (NEGATIVE); Influenza B - CEPHEID Flu B NEGATIVE (NEGATIVE); Respiratory Syncytial Virus Negative (Negative)
[2024-12-10 12:00] LABS: COVID-19 CEPHEID 4-PLEX PCR Negative (Negative)
== END ==
PROVIDERS: PCP Family Medicine; Visit Provider Physician Assistant Medical
DX: R05.1 Acute cough (principal)
CPT/HCPCS: 0241U